=== PATIENT | female | born 1995 | race Caucasian/White ===

== ENCOUNTER 2017-09-29 05:25 | Inpatient (IN) | payer OTHER ==
[2017-09-29] MEDS ORDERED: Nalbuphine 10 MG/1 ML Vial IVPUSH PRN (06:03)
[2017-09-29] MEDS ORDERED: Tranexamic Acid 1,000 MG in Sodium Chloride 0.9% 100 ML IV PRN (06:03)
[2017-09-29] MEDS ORDERED: Misoprostol 200 MCG Tab PO PRN (06:03)
[2017-09-29] MEDS ORDERED: Carboprost Tromethamine 250 MCG/1 ML Amp IM PRN (06:03)
[2017-09-29] MEDS ORDERED: Sodium Chloride 0.9% 10 ML Syringe FLUSH PRN (06:03)
[2017-09-29] MEDS ORDERED: Sodium Chloride 0.9% 2.5 ML Syringe FLUSH PRN (06:03)
[2017-09-29] MEDS ORDERED: Water For Irrigation,Sterile 1,000 ML Container IRR PRN (06:03)
[2017-09-29] MEDS ORDERED: Methylergonovine 0.2 MG/1 ML Amp IM PRN (06:03)
[2017-09-29] MEDS ORDERED: Lidocaine 1% 50 ML MDV INJECT PRN (06:03)
[2017-09-29] MEDS ORDERED: Lactated Ringers 1,000 ML IV SCH (06:15)
[2017-09-29] MEDS ORDERED: Oxytocin/0.9 % Sodium Chloride 30 UNIT/500 ML BAG IV SCH (06:15)
--- NOTE | 2017-09-29 06:28 | PCM.LDHP ---
L&D History of Present Illness - General Date of Service: 09/29/17 Admit Problem/Dx: Patient Status Order with Admit Dx/Problem 09/29/17 05:37 Patient Status [ADT] Routine 09/29/17 06:03 Patient Status [ADT] Routine Admission Diagnosis/Problem Admission Diagnosis/Problem 09/29/17 06:23 22yo EDC 10/07/2017 38 6/7wks O+, RI, GBS neg. Come in transition labor 8cm. Source of Information: Patient History Limitations: Reports: No Limitations - History of Present Illness Timing/Duration: Reports: minutes: Location, : Reports: Abdomen Quality: Reports: Pressure, Sharp Severity: Severe Improves with: Reports: None Worsens with: Reports: None Associated Symptoms: Reports: N - Related Data Allergies/Adverse Reactions: Allergies Allergy/AdvReac Type Severity Reaction Status Date / Time No Known Allergies Allergy Verified 05/12/16 22:45 Past Medical History Cardiovascular History: Reports: None Respiratory History: Reports: None [employer] History: Reports: Hematologic History: Reports: None (Denies any personal or family history of bleeding or clotting problems) - Past Surgical History HEENT Surgical History: Reports: Other (See Below) Social & Family History - Family History Family Medical History: Noncontributory - Tobacco Use Smoking Status *Q: Never Smoker Second Hand Smoke Exposure: No - Caffeine Use Caffeine Use: Reports: Coffee - Recreational Drug Use Recreational Drug Use: No H&P Review of Systems - Review of Systems: Review Of Systems: See Below General: Reports: No Symptoms HEENT: Reports: No Symptoms Pulmonary: Reports: No Symptoms Cardiovascular: Reports: No Symptoms Gastrointestinal: Reports: No Symptoms Genitourinary: Reports: No Symptoms Musculoskeletal: Reports: No Symptoms Skin: Reports: No Symptoms Psychiatric: Reports: No Symptoms Neurological: Reports: No Symptoms Hematologic/Lymphatic: Reports: No Symptoms Immunologic: Reports: No Symptoms L&D Exam - Exam Exam: See Below - Vital Signs Weight: 69.4 kg - OB Specific Contraction Intensity: Strong Movement: Active Heart Tones: Present Heart Tones per Min: 155 Heart Rate (FHR) Variability: Moderate (6-25 bmp) Presentation: Vertex Estimated Weight: 3200 - Razo Score Razo Score Cervix Position: Anterior Razo Score Consistency: Soft Razo Score Effacement: >80% Razo Score Dilation: > 5 cm Razo Score 's Station: -2 Razo Score Total: 11 - Exam General: Alert, Oriented HEENT: Hearing Intact Lungs: Normal Respiratory Effort GI/Abdominal Exam: Soft Rectal Exam: Deferred Genitourinary: Normal external exam, Normal bimanual exam, Cervical dilitation Back Exam: Full Range of Motion Extremities: Normal Range of Motion, Non-Tender, No Pedal Edema, Normal Capillary Refill Skin: Warm, Dry, Intact Neurological: Reflexes Equal Bilateral, Normal Speech, Normal Tone Psychiatric: Alert, Normal Affect, Normal Mood - Problem List (1) Supervision of normal IUP (intrauterine ) in multigravida SNOMED Code(s): 841458270, 542597261 ICD Code: Z34.80 - ENCOUNTER FOR SUPRVSN OF NORMAL , UNSP TRIMESTER Status: Acute Priority: High Current Visit: Yes Qualifiers: Trimester: third trimester Qualified Code(s): Z34.83 - Encounter for supervision of other normal , third trimester Problem List Initiated/Reviewed/Updated: Yes Orders Last 24hrs: Active Orders 24 hr Category Date Time Status Patient Status [ADT] Routine ADT 09/29/17 06:03 Active Heart Tones [RC] CONTINUOUS Care 09/29/17 06:03 Active Non Stress Test [RC] PER UNIT ROUTINE Care 09/29/17 05:37 Active Non Stress Test [RC] PER UNIT ROUTINE Care 09/29/17 06:03 Active May Shower [RC] ASDIRECTED Care 09/29/17 06:03 Active Notify Provider [RC] PRN Care 09/29/17 06:03 Active Peripheral IV Care [RC] . DIRECTED Care 09/29/17 06:03 Active Up ad Nory [RC] ASDIRECTED Care 09/29/17 05:37 Active Up ad Nory [RC] ASDIRECTED Care 09/29/17 06:03 Active Vaginal Exam [RC] Click to Edit Care 09/29/17 05:37 Active Vaginal Exam [RC] PRN Care 09/29/17 06:03 Active Vital Signs [RC] PER UNIT ROUTINE Care 09/29/17 05:37 Active Vital Signs [RC] PER UNIT ROUTINE Care 09/29/17 06:03 Active AMNISURE RUPTURE MEMBRAN [BF] Routine Lab 09/29/17 05:40 Ordered CBC W/O DIFF,HEMOGRAM [HEME] Routine Lab 09/29/17 06:03 Ordered TYPE AND SCREEN [BBK] Routine Lab 09/29/17 06:03 Ordered Carboprost Tromethamine [Hemabate DS] Med 09/29/17 06:03 Active 250 mcg IM ASDIRECTED PRN Lactated Ringers [Ringers, Lactated] 1,000 ml Med 09/29/17 06:15 Active IV ASDIRECTED Lidocaine 1% [Xylocaine 1%] Med 09/29/17 06:03 Active 50 ml INJECT .ONCE PRN Methylergonovine [Methergine] Med 09/29/17 06:03 Active 0.2 mg IM ASDIRECTED PRN Misoprostol [Cytotec] Med 09/29/17 06:03 Active 200 mcg PO .ONCE PRN Nalbuphine [Nubain] Med 09/29/17 06:03 Active 10 mg IVPUSH Q1H PRN Oxytocin/0.9 % Sodium Chloride [Oxytocin 30 Unit/500 ML Med 09/29/17 06:15 Active -NS] 30 unit in 500 ml IV TITRATE Sodium Chloride 0.9% [Saline Flush] Med 09/29/17 06:03 Active 10 ml FLUSH ASDIRECTED PRN Sodium Chloride 0.9% [Saline Flush] Med 09/29/17 06:03 Active 2.5 ml FLUSH ASDIRECTED PRN Tranexamic Acid [Cyklokapron] 1,000 mg Med 09/29/17 06:03 Active Sodium Chloride 0.9% [Normal Saline] 100 ml IV ONETIME Water For Irrigation,Sterile [Sterile Water for Med 09/29/17 06:03 Active Irrigation] 1,000 ml IRR ASDIRECTED PRN Scalp Electrode [WOMSER] Per Unit Routine Oth 09/29/17 06:03 Ordered Peripheral IV Insertion Adult [OM.PC] Routine Oth 09/29/17 06:03 Ordered Resuscitation Status Routine Resus Stat 09/29/17 05:37 Ordered Medication Orders Carboprost Tromethamine (Hemabate Ds) 250 mcg IM ASDIRECTED PRN PRN Reason: Post Hemorrhage Tranexamic Acid 1,000 mg/ (Sodium Chloride) 110 mls @ 660 mls/hr IV ONETIME PRN PRN Reason: Bleeding Lactated Ringer's (Ringers, Lactated) 1,000 mls @ 150 mls/hr IV ASDIRECTED [facility] Oxytocin/Sodium Chloride (Oxytocin 30 Unit/500 Ml-Ns) 30 unit in 500 mls @ 250 mls/hr IV TITRATE JESUS ALBERTO Lidocaine HCl (Xylocaine 1%) 50 ml INJECT .ONCE PRN PRN Reason: Laceration repair Methylergonovine Maleate (Methergine) 0.2 mg IM ASDIRECTED PRN PRN Reason: Post Hemorrhage Misoprostol (Cytotec) 200 mcg PO .ONCE PRN PRN Reason: Post Hemorrhage Nalbuphine HCl (Nubain) 10 mg IVPUSH Q1H PRN PRN Reason: Pain (severe 7-10) Sodium Chloride (Saline Flush) 10 ml FLUSH ASDIRECTED PRN PRN Reason: Keep Vein Open Sodium Chloride (Saline Flush) 2.5 ml FLUSH ASDIRECTED PRN PRN Reason: Keep Vein Open Sterile Water (Sterile Water For Irrigation) 1,000 ml IRR ASDIRECTED PRN PRN Reason: delivery Assessment/Plan Comment:: Labor A: 22yo EDC 10/07/2017 38 6/7wks O+, RI, GBS neg. Come in transition labor 8cm. P: Admit, epidural prn, anticipate . Dr Manriquez updated
[2017-09-29] MEDS ORDERED: Benzocaine/Menthol 20%-0.5% Spray 78 GM Cannister TOP PRN (10:00)
[2017-09-29] MEDS ORDERED: Acetaminophen 500 MG Tab PO PRN ×2 (10:00)
[2017-09-29] MEDS ORDERED: Lanolin 100% Cream 7 GM Tube TOP PRN (10:00)
[2017-09-29] MEDS ORDERED: Docusate Sodium 100 MG Cap PO PRN (10:00)
[2017-09-29] MEDS ORDERED: oxyCODONE 5 MG Tab PO PRN (10:00)
[2017-09-29] MEDS ORDERED: Witch Hazel Medicated Pads 40/Jar TOP PRN (10:00)
[2017-09-29] MEDS ORDERED: Bisacodyl 10 MG Supp RECTAL PRN (10:00)
[2017-09-29] MEDS ORDERED: Ibuprofen 400 MG Tab PO PRN (10:00)
--- NOTE | 2017-09-29 10:13 | PCM.DEL ---
L & D Note - General Info Date of Service: 09/29/17 Mother's Due Date: 10/07/17 - Delivery Note Labor: Spontaneous Delivery Outcome: Livebirth Infant Delivery Method: Spontaneous Vaginal Delivery-Single Presentation: Vertex Nuchal Cord: Present Anesthesia Type: None Episiotomy Type: None Laceration: None Placenta: Intact, Spontaneous Cord: 3 Vessels Estimated Blood Loss: 100 Resuscitation Needed: No Score 1 min: 4 Score 5 min: 8 Second Stage Interventions: Reports: Pushing, Pulls Own Legs Back Delivery Comments (Free Text/Narrative):: of viable male over intact perineum. Head delivered with good pushing, nuchle x1 reduced over head, shoulders and body followed easily. Infant on mothers abdomen has no spont cry and a bit floppy. CC x2 and cut, infant to warmer and code called. Infant responded to stimulation and bulb suction. Cord blood collected. Placenta delivered grossly intact. Bimanual normal. Inspection noted intact perineum. EBL 100cc, APGARS 4/8, Wt pending bonding. Mother and left in stable condition bonding well. - General Info Date of Service: 09/29/17 Admission Dx/Problem (Free Text): Patient Status Order with Admit Dx/Problem 09/29/17 05:37 Patient Status [ADT] Routine 09/29/17 06:03 Patient Status [ADT] Routine Admission Diagnosis/Problem Admission Diagnosis/Problem 09/29/17 06:23 22yo EDC 10/07/2017 38 6/7wks O+, RI, GBS neg. Come in transition labor 8cm. Functional Status: Reports: Pain Controlled, Tolerating Diet - Review of Systems General: Reports: No Symptoms HEENT: Reports: No Symptoms Pulmonary: Reports: No Symptoms Cardiovascular: Reports: No Symptoms Gastrointestinal: Reports: No Symptoms Genitourinary: Reports: No Symptoms Musculoskeletal: Reports: No Symptoms Skin: Reports: No Symptoms Neurological: Reports: No Symptoms Psychiatric: Reports: No Symptoms - Patient Data Weight - Most Recent: 69.4 kg Lab Results Last 24 Hours: Laboratory Results - last 24 hr 09/29/17 09/29/17 Range/Units 06:22 06:22 WBC 11.02 H (4.0-11.0) K/uL RBC 5.08 (4.30-5.90) M/uL Hgb 15.2 (12.0-16.0) g/dL Hct 43.6 (36.0-46.0) % MCV 85.8 (80.0-98.0) fL MCH 29.9 (27.0-32.0) pg MCHC 34.9 (31.0-37.0) g/dL RDW Std Deviation 45.7 (28.0-62.0) fl RDW Coeff of Rosa 15 (11.0-15.0) % Plt Count 178 (150-400) K/uL MPV 10.70 (7.40-12.00) fL Nucleated RBC % 0.0 /100WBC Nucleated RBCs # 0 K/uL Blood Type O POSITIVE Antibody Screen NEGATIVE Med Orders - Current: Current Medications Acetaminophen (Tylenol Extra Strength) 500 mg PO Q4H PRN PRN Reason: Pain Acetaminophen (Tylenol Extra Strength) 1,000 mg PO Q4H PRN PRN Reason: Pain Benzocaine/Menthol (Dermoplast Pain Relief 20%-0.5% [place]) 78 gm TOP ASDIRECTED PRN PRN Reason: Perineal Comfort Measure Bisacodyl (Dulcolax) 10 mg RECTAL .ONCE PRN PRN Reason: Constipation Docusate Sodium (Colace) 100 mg PO BID PRN PRN Reason: Constipation Emollient Ointment (Lansinoh Hpa) 0 gm TOP ASDIRECTED PRN PRN Reason: Sore Nipples Ibuprofen (Motrin) 400 mg PO Q4H PRN PRN Reason: Pain Ibuprofen (Motrin) 800 mg PO Q6H PRN PRN Reason: Pain Oxycodone HCl (Oxycodone) 5 mg PO Q2H PRN PRN Reason: Pain Witch Soraida (Tucks) 1 pad TOP ASDIRECTED PRN PRN Reason: comfort care Discontinued Medications Carboprost Tromethamine (Hemabate Ds) 250 mcg IM ASDIRECTED PRN PRN Reason: Post Hemorrhage Tranexamic Acid 1,000 mg/ (Sodium Chloride) 110 mls @ 660 mls/hr IV ONETIME PRN PRN Reason: Bleeding Lactated Ringer's (Ringers, Lactated) 1,000 mls @ 150 mls/hr IV ASDIRECTED JESUS ALBERTO Oxytocin/Sodium Chloride (Oxytocin 30 Unit/500 Ml-Ns) 30 unit in 500 mls @ 250 mls/hr IV TITRATE JESUS ALBERTO Lidocaine HCl (Xylocaine 1%) 50 ml INJECT .ONCE PRN PRN Reason: Laceration repair Methylergonovine Maleate (Methergine) 0.2 mg IM ASDIRECTED PRN PRN Reason: Post Hemorrhage Misoprostol (Cytotec) 200 mcg PO .ONCE PRN PRN Reason: Post Hemorrhage Nalbuphine HCl (Nubain) 10 mg IVPUSH Q1H PRN PRN Reason: Pain (severe 7-10) Sodium Chloride (Saline Flush) 10 ml FLUSH ASDIRECTED PRN PRN Reason: Keep Vein Open Sodium Chloride (Saline Flush) 2.5 ml FLUSH ASDIRECTED PRN PRN Reason: Keep Vein Open Sterile Water (Sterile Water For Irrigation) 1,000 ml IRR ASDIRECTED PRN PRN Reason: delivery - Exam General: Alert, Oriented, Cooperative, No Acute Distress Lungs: Normal Respiratory Effort GI/Abdominal Exam: Soft (Female) Exam: Vaginal Bleeding Back Exam: Full Range of Motion Extremities: Normal Range of Motion, Non-Tender, No Pedal Edema, Normal Capillary Refill Skin: Warm, Dry, Intact Neurological: No New Focal Deficit, Normal Speech, Normal Tone Psy/Mental Status: Alert, Normal Affect, Normal Mood - Problem List & Annotations (1) Supervision of normal IUP (intrauterine ) in multigravida SNOMED Code(s): 759687881, 466527961 Code(s): Z34.80 - ENCOUNTER FOR SUPRVSN OF NORMAL , UNSP TRIMESTER Status: Acute Priority: High Current Visit: Yes Qualifiers: Trimester: third trimester Qualified Code(s): Z34.83 - Encounter for supervision of other normal , third trimester (2) (normal spontaneous vaginal delivery) SNOMED Code(s): 92035737 Code(s): O80 - ENCOUNTER FOR FULL-TERM UNCOMPLICATED DELIVERY Status: Acute Priority: High Current Visit: Yes - Problem List Review Problem List Initiated/Reviewed/Updated: Yes - My Orders Last 24 Hours: My Active Orders 09/29/17 05:37 Non Stress Test [RC] PER UNIT ROUTINE Up ad Nory [RC] ASDIRECTED Vaginal Exam [RC] Click to Edit Vital Signs [RC] PER UNIT ROUTINE 09/29/17 06:03 Heart Tones [RC] CONTINUOUS May Shower [RC] ASDIRECTED Notify Provider [RC] PRN Vaginal Exam [RC] PRN Vital Signs [RC] PER UNIT ROUTINE 09/29/17 10:00 Acetaminophen [Tylenol Extra Strength] 1,000 mg PO Q4H PRN Acetaminophen [Tylenol Extra Strength] 500 mg PO Q4H PRN Benzocaine/Menthol [Dermoplast Pain Relief 20%-0.5% [place]] 78 gm TOP ASDIRECTED PRN Bisacodyl [Dulcolax] 10 mg RECTAL .ONCE PRN Docusate Sodium [Colace] 100 mg PO BID PRN Ibuprofen [Motrin] 400 mg PO Q4H PRN Ibuprofen [Motrin] 800 mg PO Q6H PRN Lanolin [Lansinoh HPA] See Dose Instructions TOP ASDIRECTED PRN Witch Soraida [Tucks] 1 pad TOP ASDIRECTED PRN oxyCODONE 5 mg PO Q2H PRN Resuscitation Status Routine 09/29/17 10:01 May Shower [RC] ASDIRECTED Up ad Nory [RC] ASDIRECTED Vital Signs [RC] PER UNIT ROUTINE Assess Lochia [WOMSER] Per Unit Routine Assess Uterine Involution [WOMSER] Per Unit Routine Peripheral IV Discontinue [OM.PC] Routine 09/29/17 10:02 Patient Status [ADT] Routine 09/29/17 Lunch Regular Diet [DIET] - Plan Plan:: Labor A: 22yo EDC 10/07/2017 38 6/7wks O+, RI, GBS neg. Come in transition labor 8cm. P: Admit, epidural prn, anticipate . Dr Manriquez updated Delivery A: of viable male. APGARS 4/8, Wt pending. EBL 100cc, Intact perineum. Stable P: Routine pp plan of care
[2017-09-29] MEDS: Ibuprofen 800 MG Tab PO PRN (10:36)
[2017-09-30] MEDS: Ibuprofen 800 MG Tab PO PRN ×2 (02:05→13:16)
--- NOTE | 2017-09-30 08:00 | PCM.DCSUM1 ---
Discharge Summary - Hospital Course Free Text/Narrative:: Discharge home with , follow up in 6 weeks for post visit or sooner if needed. - Discharge Data Discharge Date: 09/30/17 Discharge Disposition: Home, Self-Care 01 Condition: Good - Discharge Diagnosis/Problem(s) (1) Supervision of normal IUP (intrauterine ) in multigravida SNOMED Code(s): 498575355, 699768829 ICD Code: Z34.80 - ENCOUNTER FOR SUPRVSN OF NORMAL , UNSP TRIMESTER Status: Acute Priority: High Current Visit: Yes Qualifiers: Trimester: third trimester Qualified Code(s): Z34.83 - Encounter for supervision of other normal , third trimester (2) (normal spontaneous vaginal delivery) SNOMED Code(s): 70125085 ICD Code: O80 - ENCOUNTER FOR FULL-TERM UNCOMPLICATED DELIVERY Status: Acute Priority: High Current Visit: Yes - Patient Instructions Diet: Usual Diet as Tolerated Activity: As Tolerated, No Strenuous Activities, Rest and Relax Today Driving: May Drive Today Showering/Bathing: May Shower Notify Provider of: Fever, Increased Pain, Swelling and Redness, Nausea and/or Vomiting - Discharge Plan Referrals: [facility] [Outside] Zeina Zurita CNM [Mid-] - 11/10/17 1:30 pm - General Info Date of Service: 09/30/17 Admission Dx/Problem (Free Text: Patient Status Order with Admit Dx/Problem 09/29/17 05:37 Patient Status [ADT] Routine 09/29/17 06:03 Patient Status [ADT] Routine Admission Diagnosis/Problem Admission Diagnosis/Problem 09/29/17 06:23 22yo EDC 10/07/2017 38 6/7wks O+, RI, GBS neg. Come in transition labor 8cm. Functional Status: Reports: Pain Controlled, Tolerating Diet, Ambulating, Urinating - Review of Systems General: Reports: No Symptoms HEENT: Reports: No Symptoms Pulmonary: Reports: No Symptoms Cardiovascular: Reports: No Symptoms Gastrointestinal: Reports: No Symptoms Genitourinary: Reports: No Symptoms Musculoskeletal: Reports: No Symptoms Skin: Reports: No Symptoms Neurological: Reports: No Symptoms Psychiatric: Reports: No Symptoms - Patient Data Vitals - Most Recent: Last Vital Signs Temp 36.3 C 09/30/17 04:29 Pulse 67 09/30/17 04:29 Resp 16 09/30/17 04:29 BP 103/59 L 09/30/17 04:29 Pulse Ox 96 09/30/17 04:29 Weight - Most Recent: 69.4 kg Med Orders - Current: Current Medications Acetaminophen (Tylenol Extra Strength) 500 mg PO Q4H PRN PRN Reason: Pain Acetaminophen (Tylenol Extra Strength) 1,000 mg PO Q4H PRN PRN Reason: Pain Benzocaine/Menthol (Dermoplast Pain Relief 20%-0.5% [place]) 78 gm TOP ASDIRECTED PRN PRN Reason: Perineal Comfort Measure Last Admin: 09/29/17 10:35 Dose: 1 canister Bisacodyl (Dulcolax) 10 mg RECTAL .ONCE PRN PRN Reason: Constipation Docusate Sodium (Colace) 100 mg PO BID PRN PRN Reason: Constipation Emollient Ointment (Lansinoh Hpa) 0 gm TOP ASDIRECTED PRN PRN Reason: Sore Nipples Ibuprofen (Motrin) 400 mg PO Q4H PRN PRN Reason: Pain Ibuprofen (Motrin) 800 mg PO Q6H PRN PRN Reason: Pain Last Admin: 09/30/17 02:05 Dose: 800 mg Oxycodone HCl (Oxycodone) 5 mg PO Q2H PRN PRN Reason: Pain Witch Soraida (Tucks) 1 pad TOP ASDIRECTED PRN PRN Reason: comfort care Last Admin: 09/29/17 10:35 Dose: 1 tub Discontinued Medications Carboprost Tromethamine (Hemabate Ds) 250 mcg IM ASDIRECTED PRN PRN Reason: Post Hemorrhage Tranexamic Acid 1,000 mg/ (Sodium Chloride) 110 mls @ 660 mls/hr IV ONETIME PRN PRN Reason: Bleeding Lactated Ringer's (Ringers, Lactated) 1,000 mls @ 150 mls/hr IV ASDIRECTED JESUS ALBERTO Oxytocin/Sodium Chloride (Oxytocin 30 Unit/500 Ml-Ns) 30 unit in 500 mls @ 250 mls/hr IV TITRATE JESUS ALBERTO Last Admin: 09/29/17 09:49 Dose: 250 mls/hr Lidocaine HCl (Xylocaine 1%) 50 ml INJECT .ONCE PRN PRN Reason: Laceration repair Methylergonovine Maleate (Methergine) 0.2 mg IM ASDIRECTED PRN PRN Reason: Post Hemorrhage Misoprostol (Cytotec) 200 mcg PO .ONCE PRN PRN Reason: Post Hemorrhage Nalbuphine HCl (Nubain) 10 mg IVPUSH Q1H PRN PRN Reason: Pain (severe 7-10) Sodium Chloride (Saline Flush) 10 ml FLUSH ASDIRECTED PRN PRN Reason: Keep Vein Open Sodium Chloride (Saline Flush) 2.5 ml FLUSH ASDIRECTED PRN PRN Reason: Keep Vein Open Sterile Water (Sterile Water For Irrigation) 1,000 ml IRR ASDIRECTED PRN PRN Reason: delivery Last Admin: 09/29/17 09:30 Dose: 1,000 ml - Exam General: Reports: Alert, Oriented, Cooperative, No Acute Distress Lungs: Reports: Clear to Auscultation, Normal Respiratory Effort Cardiovascular: Reports: Regular Rate, Regular Rhythm, No Murmurs GI/Abdominal Exam: Soft, Non-Tender, No Distention (Female) Exam: Vaginal Bleeding Rectal (Female) Exam: Deferred Back Exam: Reports: Full Range of Motion Extremities: Normal Range of Motion, Non-Tender, No Pedal Edema, Normal Capillary Refill Skin: Reports: Warm, Dry, Intact Wound/Incisions: Reports: Healing Well Neurological: Reports: No New Focal Deficit, Normal Speech, Normal Tone Psy/Mental Status: Reports: Alert, Normal Affect, Normal Mood *Q Meaningful Use (DIS) - VTE *Q VTE Criteria *Q: - Stroke *Q Stroke Criteria *Q: - AMI *Q AMI Criteria *Q:
[2017-09-30 10:52] VITALS: BP 100/64
== END 2017-09-30 14:15 | disposition home or self-care (01) | DRG 775 ==
LOC: MW.OBCHECK 05:25 → MW.OB 05:28 → MW.OBCHECK 06:03 → OBSVTOIN 09:45
PROVIDERS: ADMIT Obstetrics & Gynecology; ATTEND Obstetrics & Gynecology
PROC: 10E0XZZ Delivery of Products of Conception, External Approach (ICD-10-PCS; principal; 2017-09-29)
DX: O69.1XX0 Labor and delivery complicated by cord around neck, with compression, not applicable or unspecified (principal); Z3A.38 38 weeks gestation of pregnancy; Z37.0 Single live birth
CPT/HCPCS: 59025; 59409; 85027; 86850; 86900; 86901; A9270-GY; J2590

== ENCOUNTER 2019-03-27 02:20 | Inpatient (IN) | payer OTHER ==
[2019-03-27] MEDS ORDERED: Sodium Chloride 0.9% 10 ML SDV IV PRN (02:57)
[2019-03-27] MEDS ORDERED: Ondansetron 4 MG/2 ML SDV IVPUSH PRN (02:57)
[2019-03-27] MEDS ORDERED: Water For Irrigation,Sterile 1,000 ML Container IRR PRN (02:57)
[2019-03-27] MEDS ORDERED: Misoprostol 200 MCG Tab PO PRN (02:57)
[2019-03-27] MEDS ORDERED: Carboprost Tromethamine 250 MCG/1 ML Amp IM PRN (02:57)
[2019-03-27] MEDS ORDERED: Methylergonovine 0.2 MG/1 ML Amp IM PRN (02:57)
[2019-03-27] MEDS ORDERED: Sodium Chloride 0.9% 2.5 ML Syringe FLUSH PRN (02:57)
[2019-03-27] MEDS ORDERED: Tranexamic Acid 1,000 MG in Sodium Chloride 0.9% 100 ML IV PRN (02:57)
[2019-03-27] MEDS ORDERED: Nalbuphine 10 MG/1 ML Vial IVPUSH PRN (02:57)
[2019-03-27] MEDS ORDERED: Sodium Chloride 0.9% 10 ML Syringe FLUSH PRN (02:57)
[2019-03-27] MEDS ORDERED: Ampicillin 2 GM in Sodium Chloride 0.9% 100 ML IV ONE (02:57)
[2019-03-27] MEDS ORDERED: Lidocaine 1% 50 ML MDV INJECT PRN (02:57)
[2019-03-27] MEDS ORDERED: Butorphanol 1 MG/ML SDV IVPUSH PRN (02:57)
[2019-03-27] MEDS ORDERED: Oxytocin/0.9 % Sodium Chloride 30 UNIT/500 ML BAG IV SCH (03:00)
[2019-03-27] MEDS ORDERED: Lactated Ringers 1,000 ML IV SCH (03:00)
[2019-03-27] MEDS ORDERED: Oxytocin 10 Units/1 ML SDV ONE (03:07)
--- NOTE | 2019-03-27 03:43 | PCM.LDHP ---
L&D History of Present Illness - General Date of Service: 03/27/19 Admit Problem/Dx: Patient Status Order with Admit Dx/Problem 03/27/19 02:57 Patient Status [ADT] Routine Admission Diagnosis/Problem Admission Diagnosis/Problem 03/27/19 03:35 23 yo EDC 03/26/2019 40 1/7wks comes to L&D in active labor, O+, RI, GBS pos. 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: Hematologic History: Reports: None (Denies any personal or family history of bleeding or clotting problems) - Past Surgical History HEENT Surgical History: Reports: Other (See Below) Social & Family History - Family History Family Medical History: Noncontributory - Caffeine Use Caffeine Use: Reports: Coffee H&P Review of Systems - Review of Systems: Review Of Systems: See Below General: Reports: No Symptoms HEENT: Reports: No Symptoms Pulmonary: Reports: No Symptoms Cardiovascular: Reports: No Symptoms Gastrointestinal: Reports: No Symptoms Genitourinary: Reports: No Symptoms Musculoskeletal: Reports: No Symptoms Skin: Reports: No Symptoms Psychiatric: Reports: No Symptoms Neurological: Reports: No Symptoms Hematologic/Lymphatic: Reports: No Symptoms Immunologic: Reports: No Symptoms L&D Exam - Exam Exam: See Below - OB Specific Contraction Intensity: Strong Movement: Active Heart Tones: Present Heart Rate (FHR) Variability: Moderate (6-25 bmp) Presentation: Vertex - Razo Score Razo Score Cervix Position: Anterior Razo Score Consistency: Soft Razo Score Effacement: >80% Razo Score Dilation: > 5 cm Razo Score 's Station: -1 ,0 Razo Score Total: 12 - Exam General: Alert, Oriented, Cooperative HEENT: Hearing Intact Lungs: Normal Respiratory Effort GI/Abdominal Exam: Soft, Non-Tender Rectal Exam: Deferred Genitourinary: Normal external exam, Normal bimanual exam, Cervical dilitation. No: Cervical fluid, Vaginal bleeding Back Exam: Normal Inspection, Full Range of Motion Extremities: Normal Inspection, Normal Range of Motion, Non-Tender, No Pedal Edema Skin: Warm, Dry, Intact Neurological: Cranial Nerves Intact, Reflexes Equal Bilateral, Strength Equal Bilateral, Normal Gait, Normal Speech, Normal Tone, Sensation Intact Psychiatric: Alert, Normal Affect, Normal Mood - Problem List (1) (normal spontaneous vaginal delivery) SNOMED Code(s): 40315177, 448904647 ICD Code: O80 - ENCOUNTER FOR FULL-TERM UNCOMPLICATED DELIVERY Status: Acute Priority: High Current Visit: No (2) Supervision of normal IUP (intrauterine ) in multigravida SNOMED Code(s): 734582425, 537950772, 280748954 ICD Code: Z34.80 - ENCOUNTER FOR SUPRVSN OF NORMAL , UNSP TRIMESTER Status: Acute Priority: High Current Visit: No Qualifiers: Trimester: third trimester Problem List Initiated/Reviewed/Updated: Yes Orders Last 24hrs: Active Orders 24 hr Category Date Time Status Patient Status [ADT] Routine ADT 03/27/19 02:57 Active Heart Tones [RC] CONTINUOUS Care 03/27/19 02:57 Active Non Stress Test [RC] PER UNIT ROUTINE Care 03/27/19 02:57 Active May Shower [RC] ASDIRECTED Care 03/27/19 02:57 Active Notify Provider [RC] PRN Care 03/27/19 02:57 Active Up ad Nory [RC] ASDIRECTED Care 03/27/19 02:57 Active Vaginal Exam [RC] PRN Care 03/27/19 02:57 Active Vital Signs [RC] PER UNIT ROUTINE Care 03/27/19 02:57 Active Regular Diet [DIET] Diet 03/27/19 Breakfast Active CBC W/O DIFF,HEMOGRAM [HEME] Routine Lab 03/27/19 02:57 Ordered TYPE AND SCREEN [BBK] Routine Lab 03/27/19 02:57 Ordered Butorphanol [Stadol] Med 03/27/19 02:57 Active 1 mg IVPUSH Q1H PRN Carboprost Tromethamine [Hemabate DS] Med 03/27/19 02:57 Active 250 mcg IM ASDIRECTED PRN Lactated Ringers [Ringers, Lactated] 1,000 ml Med 03/27/19 03:00 Active IV ASDIRECTED Lidocaine 1% [Xylocaine 1%] Med 03/27/19 02:57 Active 50 ml INJECT ONETIME PRN Methylergonovine [Methergine] Med 03/27/19 02:57 Active 0.2 mg IM ASDIRECTED PRN Nalbuphine [Nubain] Med 03/27/19 02:57 Active 10 mg IVPUSH Q1H PRN Ondansetron [Zofran] Med 03/27/19 02:57 Active 4 mg IVPUSH Q4H PRN Oxytocin/0.9 % Sodium Chloride [Oxytocin 30 Unit/500 ML Med 03/27/19 03:00 Active -NS] 30 unit in 500 ml IV TITRATE Sodium Chloride 0.9% [Normal Saline] Med 03/27/19 02:57 Active 10 ml IV ASDIRECTED PRN Sodium Chloride 0.9% [Saline Flush] Med 03/27/19 02:57 Active 10 ml FLUSH ASDIRECTED PRN Sodium Chloride 0.9% [Saline Flush] Med 03/27/19 02:57 Active 2.5 ml FLUSH ASDIRECTED PRN Tranexamic Acid [Cyklokapron] 1,000 mg Med 03/27/19 02:57 Active Sodium Chloride 0.9% [Normal Saline] 100 ml IV ONETIME Water For Irrigation,Sterile [Sterile Water for Med 03/27/19 02:57 Active Irrigation] 1,000 ml IRR ASDIRECTED PRN miSOPROStol [Cytotec] Med 03/27/19 02:57 Active 200 mcg PO ONETIME PRN Scalp Electrode [WOMSER] Per Unit Routine Oth 03/27/19 02:57 Ordered Peripheral IV Insertion Adult [OM.PC] Routine Oth 03/27/19 02:57 Ordered Resuscitation Status Routine Resus Stat 03/27/19 02:57 Ordered Medication Orders Butorphanol Tartrate (Stadol) 1 mg IVPUSH Q1H PRN PRN Reason: Pain Carboprost Tromethamine (Hemabate Ds) 250 mcg IM ASDIRECTED PRN PRN Reason: Post Hemorrhage Lactated Ringer's (Ringers, Lactated) 1,000 mls @ 150 mls/hr IV ASDIRECTED [facility] Oxytocin/Sodium Chloride (Oxytocin 30 Unit/500 Ml-Ns) 30 unit in 500 mls @ 999 mls/hr IV TITRATE JESUS ALBERTO Tranexamic Acid 1,000 mg/ (Sodium Chloride) 110 mls @ 660 mls/hr IV ONETIME PRN PRN Reason: Bleeding Lidocaine HCl (Xylocaine 1%) 50 ml INJECT ONETIME PRN PRN Reason: Laceration repair Methylergonovine Maleate (Methergine) 0.2 mg IM ASDIRECTED PRN PRN Reason: Post Hemorrhage Misoprostol (Cytotec) 200 mcg PO ONETIME PRN PRN Reason: Post Hemorrhage Nalbuphine HCl (Nubain) 10 mg IVPUSH Q1H PRN PRN Reason: Pain (severe 7-10) Ondansetron HCl (Zofran) 4 mg IVPUSH Q4H PRN PRN Reason: Nausea/Vomiting Sodium Chloride (Saline Flush) 10 ml FLUSH ASDIRECTED PRN PRN Reason: Keep Vein Open Sodium Chloride (Saline Flush) 2.5 ml FLUSH ASDIRECTED PRN PRN Reason: Keep Vein Open Sodium Chloride (Normal Saline) 10 ml IV ASDIRECTED PRN PRN Reason: IV Use Sterile Water (Sterile Water For Irrigation) 1,000 ml IRR ASDIRECTED PRN PRN Reason: delivery Assessment/Plan Comment:: A:23 yo EDC 03/26/2019 40 1/7wks comes to L&D in active labor, O+, RI, GBS pos. P: Admit, delivery. Delivery A: of viable female, delivered very fast and delivery assisted by RN, APGARS 8/9, Intact, EBL 100cc, mother and baby stable P: Routine pp plan of care
--- NOTE | 2019-03-27 03:50 | PCM.DEL ---
L & D Note - General Info Date of Service: 03/27/19 Mother's Due Date: 03/26/19 - Delivery Note Labor: Spontaneous Delivery Outcome: Livebirth Infant Delivery Method: Spontaneous Vaginal Delivery-Single Delivery Mode: Spontaneous Presentation: Vertex Nuchal Cord: None Anesthesia Type: None Episiotomy Type: None Laceration: None Placenta: Intact, Spontaneous Score 1 min: 8 Score 5 min: 9 Second Stage Interventions: Reports: Pushing, Pulls Own Legs Back Delivery Comments (Free Text/Narrative):: of viable female, delivery assisted by RN, pt went from 5cm to complete and delivered in 40min. I arrived and delivered the placenta. Inspection of the perineum noted intact. EBL 100cc. APGARS 8/9. Mother and baby stable in recovery bonding well. - General Info Date of Service: 03/27/19 Admission Dx/Problem (Free Text): Patient Status Order with Admit Dx/Problem 03/27/19 02:57 Patient Status [ADT] Routine Admission Diagnosis/Problem Admission Diagnosis/Problem 03/27/19 03:35 23 yo EDC 03/26/2019 40 1/7wks comes to L&D in active labor, O+, RI, GBS pos. Functional Status: Reports: Pain Controlled, Tolerating Diet, Ambulating, Urinating - Review of Systems General: Reports: No Symptoms HEENT: Reports: No Symptoms Pulmonary: Reports: No Symptoms Cardiovascular: Reports: No Symptoms Gastrointestinal: Reports: No Symptoms Genitourinary: Reports: No Symptoms Musculoskeletal: Reports: No Symptoms Skin: Reports: No Symptoms Neurological: Reports: No Symptoms Psychiatric: Reports: No Symptoms - Patient Data Med Orders - Current: Current Medications Butorphanol Tartrate (Stadol) 1 mg IVPUSH Q1H PRN PRN Reason: Pain Carboprost Tromethamine (Hemabate Ds) 250 mcg IM ASDIRECTED PRN PRN Reason: Post Hemorrhage Lactated Ringer's (Ringers, Lactated) 1,000 mls @ 150 mls/hr IV ASDIRECTED JESUS ALBERTO Oxytocin/Sodium Chloride (Oxytocin 30 Unit/500 Ml-Ns) 30 unit in 500 mls @ 999 mls/hr IV TITRATE JESUS ALBERTO Tranexamic Acid 1,000 mg/ (Sodium Chloride) 110 mls @ 660 mls/hr IV ONETIME PRN PRN Reason: Bleeding Lidocaine HCl (Xylocaine 1%) 50 ml INJECT ONETIME PRN PRN Reason: Laceration repair Methylergonovine Maleate (Methergine) 0.2 mg IM ASDIRECTED PRN PRN Reason: Post Hemorrhage Misoprostol (Cytotec) 200 mcg PO ONETIME PRN PRN Reason: Post Hemorrhage Nalbuphine HCl (Nubain) 10 mg IVPUSH Q1H PRN PRN Reason: Pain (severe 7-10) Ondansetron HCl (Zofran) 4 mg IVPUSH Q4H PRN PRN Reason: Nausea/Vomiting Sodium Chloride (Saline Flush) 10 ml FLUSH ASDIRECTED PRN PRN Reason: Keep Vein Open Sodium Chloride (Saline Flush) 2.5 ml FLUSH ASDIRECTED PRN PRN Reason: Keep Vein Open Sodium Chloride (Normal Saline) 10 ml IV ASDIRECTED PRN PRN Reason: IV Use Sterile Water (Sterile Water For Irrigation) 1,000 ml IRR ASDIRECTED PRN PRN Reason: delivery Discontinued Medications Ampicillin Sodium 2 gm/ Sodium (Chloride) 100 mls @ 200 mls/hr IV ONETIME ONE Stop: 03/27/19 03:26 Oxytocin (Pitocin) Confirm Administered Dose 10 unit .ROUTE .STK-MED ONE Stop: 03/27/19 03:08 - Exam General: Alert, Oriented, Cooperative, No Acute Distress Lungs: Normal Respiratory Effort GI/Abdominal Exam: Soft, Non-Tender, No Distention (Female) Exam: Normal External Exam, Vaginal Bleeding. No: Cervical Lesions , Vaginal Lesions, Vaginal Tears Back Exam: Normal Inspection, Full Range of Motion Extremities: Normal Inspection, Normal Range of Motion, Non-Tender, No Pedal Edema Skin: Warm, Dry, Intact Wound/Incisions: Healing Well Neurological: No New Focal Deficit, Normal Speech, Normal Tone, Strength Equal Bilateral Psy/Mental Status: Alert, Normal Affect, Normal Mood - Problem List & Annotations (1) (normal spontaneous vaginal delivery) SNOMED Code(s): 64401097, 274685880 Code(s): O80 - ENCOUNTER FOR FULL-TERM UNCOMPLICATED DELIVERY Status: Acute Priority: High Current Visit: No (2) Supervision of normal IUP (intrauterine ) in multigravida SNOMED Code(s): 935643363, 979453763, 391342595 Code(s): Z34.80 - ENCOUNTER FOR SUPRVSN OF NORMAL , UNSP TRIMESTER Status: Acute Priority: High Current Visit: No Qualifiers: Trimester: third trimester - Problem List Review Problem List Initiated/Reviewed/Updated: Yes - Plan Plan:: A:23 yo EDC 03/26/2019 40 1/7wks comes to L&D in active labor, O+, RI, GBS pos. P: Admit, delivery. Delivery A: of viable female, delivered very fast and delivery assisted by RN, APGARS 8/9, Intact, EBL 100cc, mother and baby stable P: Routine pp plan of care
[2019-03-27] MEDS ORDERED: Oxytocin 10 Units/1 ML SDV IM ONE (03:51)
[2019-03-27] MEDS ORDERED: Benzocaine/Menthol 20%-0.5% Spray 78 GM Cannister TOP PRN (03:56)
[2019-03-27] MEDS ORDERED: Lanolin 100% Cream 7 GM Tube TOP PRN (03:56)
[2019-03-27] MEDS ORDERED: Docusate Sodium 100 MG Cap PO PRN (03:56)
[2019-03-27] MEDS ORDERED: Witch Hazel Medicated Pads 40/Jar TOP PRN (03:56)
[2019-03-27] MEDS ORDERED: Acetaminophen 500 MG Tab PO PRN ×2 (03:56)
[2019-03-27] MEDS ORDERED: Bisacodyl 10 MG Supp RECTAL PRN (03:56)
[2019-03-27] MEDS ORDERED: oxyCODONE 5 MG Tab PO PRN (03:56)
[2019-03-27] MEDS ORDERED: Ibuprofen 800 MG Tab PO PRN (03:56)
[2019-03-27] MEDS ORDERED: Ibuprofen 400 MG Tab PO PRN (03:56)
--- NOTE | 2019-03-28 08:38 | PCM.PNPP ---
- General Info Date of Service: 03/28/19 Admission Dx/Problem (Free Text): Patient Status Order with Admit Dx/Problem 03/27/19 02:57 Patient Status [ADT] Routine Admission Diagnosis/Problem Admission Diagnosis/Problem 03/27/19 03:35 23 yo EDC 03/26/2019 40 1/7wks comes to L&D in active labor, O+, RI, GBS pos. Functional Status: Reports: Pain Controlled, Tolerating Diet, Ambulating, Urinating - Review of Systems General: Reports: No Symptoms HEENT: Reports: No Symptoms Pulmonary: Reports: No Symptoms Cardiovascular: Reports: No Symptoms Gastrointestinal: Reports: No Symptoms Genitourinary: Reports: No Symptoms Musculoskeletal: Reports: No Symptoms Skin: Reports: No Symptoms Neurological: Reports: No Symptoms Psychiatric: Reports: No Symptoms - Patient Data Vital Signs - Most Recent: Last Vital Signs Temp 36.4 C 03/28/19 03:44 Pulse 94 03/28/19 03:44 Resp 17 03/28/19 03:44 BP 102/62 03/28/19 03:44 Pulse Ox 97 03/28/19 03:44 Weight - Most Recent: 70.307 kg Med Orders - Current: Current Medications Acetaminophen (Tylenol Extra Strength) 500 mg PO Q4H PRN PRN Reason: Pain Acetaminophen (Tylenol Extra Strength) 1,000 mg PO Q4H PRN PRN Reason: Pain Benzocaine/Menthol (Dermoplast Pain Relief 20%-0.5% [place]) 78 gm TOP ASDIRECTED PRN PRN Reason: Perineal Comfort Measure Bisacodyl (Dulcolax) 10 mg RECTAL ONETIME PRN PRN Reason: Constipation Carboprost Tromethamine (Hemabate Ds) 250 mcg IM ASDIRECTED PRN PRN Reason: Post Hemorrhage Docusate Sodium (Colace) 100 mg PO BID PRN PRN Reason: Constipation Emollient Ointment (Lansinoh Hpa) 0 gm TOP ASDIRECTED PRN PRN Reason: Sore Nipples Ibuprofen (Motrin) 400 mg PO Q4H PRN PRN Reason: Pain Ibuprofen (Motrin) 800 mg PO Q6H PRN PRN Reason: Pain Methylergonovine Maleate (Methergine) 0.2 mg IM ASDIRECTED PRN PRN Reason: Post Hemorrhage Misoprostol (Cytotec) 200 mcg PO ONETIME PRN PRN Reason: Post Hemorrhage Oxycodone HCl (Oxycodone) 5 mg PO Q2H PRN PRN Reason: Pain Witch Soraida (Tucks) 1 pad TOP ASDIRECTED PRN PRN Reason: comfort care Discontinued Medications Butorphanol Tartrate (Stadol) 1 mg IVPUSH Q1H PRN PRN Reason: Pain Ampicillin Sodium 2 gm/ Sodium (Chloride) 100 mls @ 200 mls/hr IV ONETIME ONE Stop: 03/27/19 03:26 Lactated Ringer's (Ringers, Lactated) 1,000 mls @ 150 mls/hr IV ASDIRECTED JESUS ALBRETO Oxytocin/Sodium Chloride (Oxytocin 30 Unit/500 Ml-Ns) 30 unit in 500 mls @ 999 mls/hr IV TITRATE JESUS LABERTO Tranexamic Acid 1,000 mg/ (Sodium Chloride) 110 mls @ 660 mls/hr IV ONETIME PRN PRN Reason: Bleeding Lidocaine HCl (Xylocaine 1%) 50 ml INJECT ONETIME PRN PRN Reason: Laceration repair Nalbuphine HCl (Nubain) 10 mg IVPUSH Q1H PRN PRN Reason: Pain (severe 7-10) Ondansetron HCl (Zofran) 4 mg IVPUSH Q4H PRN PRN Reason: Nausea/Vomiting Oxytocin (Pitocin) Confirm Administered Dose 10 unit .ROUTE .STK-MED ONE Stop: 03/27/19 03:08 Oxytocin (Pitocin) 10 unit IM ONETIME ONE Stop: 03/27/19 03:52 Last Admin: 03/27/19 04:12 Dose: 10 unit Sodium Chloride (Saline Flush) 10 ml FLUSH ASDIRECTED PRN PRN Reason: Keep Vein Open Sodium Chloride (Saline Flush) 2.5 ml FLUSH ASDIRECTED PRN PRN Reason: Keep Vein Open Sodium Chloride (Normal Saline) 10 ml IV ASDIRECTED PRN PRN Reason: IV Use Sterile Water (Sterile Water For Irrigation) 1,000 ml IRR ASDIRECTED PRN PRN Reason: delivery - Infant Interaction Disposition, : in Room with Family Interaction: Holding Infant Feeding: Breastfed Infant; Nursed Well Support Person: - Recovery Exam Fundal Tone: Firm Fundal Level: 2 Fingerbreadths Below Umbilicus Fundal Placement: Midline Lochia Amount: Scant Lochia Color: Rubra/Red Perineum Description: Intact, Minimal Bruising/Swelling Episiotomy/Laceration: None Bladder Status: Voiding Urinary Elimination: Voided - Exam General: Alert, Oriented, Cooperative, No Acute Distress Lungs: Normal Respiratory Effort GI/Abdominal Exam: Soft, Non-Tender Extremities: Normal Range of Motion, No Pedal Edema Skin: Warm, Dry, Intact Neurological: No New Focal Deficit, Normal Speech, Normal Tone, Strength Equal Bilateral, Sensation Intact Psy/Mental Status: Alert, Normal Affect, Normal Mood - Problem List & Annotations (1) (normal spontaneous vaginal delivery) SNOMED Code(s): 44430604, 003567703 Code(s): O80 - ENCOUNTER FOR FULL-TERM UNCOMPLICATED DELIVERY Status: Acute Priority: High Current Visit: No (2) Supervision of normal IUP (intrauterine ) in multigravida SNOMED Code(s): 087747190, 868041049, 964924519 Code(s): Z34.80 - ENCOUNTER FOR SUPRVSN OF NORMAL , UNSP TRIMESTER Status: Acute Priority: High Current Visit: No Qualifiers: Trimester: third trimester - Problem List Review Problem List Initiated/Reviewed/Updated: Yes - Plan Plan:: A:23 yo EDC 03/26/2019 40 1/7wks comes to L&D in active labor, O+, RI, GBS pos. P: Admit, delivery. Delivery A: of viable female, delivered very fast and delivery assisted by RN, APGARS 8/9, Intact, EBL 100cc, mother and baby stable P: Routine pp plan of care PPD#1 A: VSS, AF, breast feeding well, infant needs to stay one more day due to untreated GBS, pt will stay as well. Stable P: Continue PP POC
--- NOTE | 2019-03-29 08:55 | PCM.DCSUM1 ---
Discharge Summary - Hospital Course Free Text/Narrative:: Discharge home with infant, follow up in 6 weeks for . Diagnosis: Stroke: No Modified [place] Scale: No Symptoms at All Modified [place] Scale Score: 0 - Discharge Data Discharge Date: 03/29/19 Discharge Disposition: Home, Self-Care 01 Condition: Good - Referral to Home Health Primary Care Physician: PCP None - Discharge Diagnosis/Problem(s) (1) (normal spontaneous vaginal delivery) SNOMED Code(s): 00489941, 082178673 ICD Code: O80 - ENCOUNTER FOR FULL-TERM UNCOMPLICATED DELIVERY Status: Acute Priority: High Current Visit: No (2) Supervision of normal IUP (intrauterine ) in multigravida SNOMED Code(s): 107324476, 151879209, 263056582 ICD Code: Z34.80 - ENCOUNTER FOR SUPRVSN OF NORMAL , UNSP TRIMESTER Status: Acute Priority: High Current Visit: No Qualifiers: Trimester: third trimester - Patient Instructions Diet: Usual Diet as Tolerated Activity: As Tolerated, No Strenuous Activities, Rest and Relax Today Driving: May Drive Today Showering/Bathing: May Shower Notify Provider of: Fever, Increased Pain, Swelling and Redness, Nausea and/or Vomiting Other/Special Instructions: Discharge home with , follow up in 6 weeks for . - Discharge Plan *PRESCRIPTION DRUG MONITORING PROGRAM REVIEWED*: Not Applicable *COPY OF PRESCRIPTION DRUG MONITORING REPORT IN PATIENT FABIAN: Not Applicable Prescriptions/Med Rec: Ibuprofen [Motrin] 800 mg PO Q6H PRN #90 tablet PRN Reason: Pain Home Medications: Home Meds Ibuprofen [Motrin] 800 mg PO Q6H PRN #90 tablet 03/29/19 [Rx] Oxygen Therapy Mode: Room Air Patient Handouts: Vaginal Delivery, Care After Referrals: [facility] [Outside] Zeina Zurita CNM [Mid-] - 05/08/19 3:00 pm - Discharge Summary/Plan Comment DC Time >30 min.: Yes Discharge Summary/Plan Comment: Discharge home with , follow up in 6 weeks for . - General Info Date of Service: 03/29/19 Admission Dx/Problem (Free Text: Patient Status Order with Admit Dx/Problem 03/27/19 02:57 Patient Status [ADT] Routine Admission Diagnosis/Problem Admission Diagnosis/Problem 03/27/19 03:35 23 yo EDC 03/26/2019 40 1/7wks comes to L&D in active labor, O+, RI, GBS pos. Functional Status: Reports: Pain Controlled, Tolerating Diet, Ambulating, Urinating - Review of Systems General: Reports: No Symptoms HEENT: Reports: No Symptoms Pulmonary: Reports: No Symptoms Cardiovascular: Reports: No Symptoms Gastrointestinal: Reports: No Symptoms Genitourinary: Reports: No Symptoms Musculoskeletal: Reports: No Symptoms Skin: Reports: No Symptoms Neurological: Reports: No Symptoms Psychiatric: Reports: No Symptoms - Patient Data Vitals - Most Recent: Last Vital Signs Temp 36.6 C 03/29/19 03:45 Pulse 84 03/29/19 03:45 Resp 16 03/29/19 03:45 BP 92/66 03/29/19 03:45 Pulse Ox 97 03/29/19 03:45 Weight - Most Recent: 70.307 kg Med Orders - Current: Current Medications Acetaminophen (Tylenol Extra Strength) 500 mg PO Q4H PRN PRN Reason: Pain Acetaminophen (Tylenol Extra Strength) 1,000 mg PO Q4H PRN PRN Reason: Pain Benzocaine/Menthol (Dermoplast Pain Relief 20%-0.5% [place]) 78 gm TOP ASDIRECTED PRN PRN Reason: Perineal Comfort Measure Bisacodyl (Dulcolax) 10 mg RECTAL ONETIME PRN PRN Reason: Constipation Carboprost Tromethamine (Hemabate Ds) 250 mcg IM ASDIRECTED PRN PRN Reason: Post Hemorrhage Docusate Sodium (Colace) 100 mg PO BID PRN PRN Reason: Constipation Emollient Ointment (Lansinoh Hpa) 0 gm TOP ASDIRECTED PRN PRN Reason: Sore Nipples Ibuprofen (Motrin) 400 mg PO Q4H PRN PRN Reason: Pain Ibuprofen (Motrin) 800 mg PO Q6H PRN PRN Reason: Pain Methylergonovine Maleate (Methergine) 0.2 mg IM ASDIRECTED PRN PRN Reason: Post Hemorrhage Misoprostol (Cytotec) 200 mcg PO ONETIME PRN PRN Reason: Post Hemorrhage Oxycodone HCl (Oxycodone) 5 mg PO Q2H PRN PRN Reason: Pain Witch Soraida (Tucks) 1 pad TOP ASDIRECTED PRN PRN Reason: comfort care Discontinued Medications Butorphanol Tartrate (Stadol) 1 mg IVPUSH Q1H PRN PRN Reason: Pain Ampicillin Sodium 2 gm/ Sodium (Chloride) 100 mls @ 200 mls/hr IV ONETIME ONE Stop: 03/27/19 03:26 Last Admin: 03/28/19 08:39 Dose: Not Given Lactated Ringer's (Ringers, Lactated) 1,000 mls @ 150 mls/hr IV ASDIRECTED JESUS ALBERTO Oxytocin/Sodium Chloride (Oxytocin 30 Unit/500 Ml-Ns) 30 unit in 500 mls @ 999 mls/hr IV TITRATE JESUS ALBERTO Tranexamic Acid 1,000 mg/ (Sodium Chloride) 110 mls @ 660 mls/hr IV ONETIME PRN PRN Reason: Bleeding Lidocaine HCl (Xylocaine 1%) 50 ml INJECT ONETIME PRN PRN Reason: Laceration repair Nalbuphine HCl (Nubain) 10 mg IVPUSH Q1H PRN PRN Reason: Pain (severe 7-10) Ondansetron HCl (Zofran) 4 mg IVPUSH Q4H PRN PRN Reason: Nausea/Vomiting Oxytocin (Pitocin) Confirm Administered Dose 10 unit .ROUTE .[facility]-MED ONE Stop: 03/27/19 03:08 Last Admin: 03/28/19 08:38 Dose: Not Given Oxytocin (Pitocin) 10 unit IM ONETIME ONE Stop: 03/27/19 03:52 Last Admin: 03/27/19 04:12 Dose: 10 unit Sodium Chloride (Saline Flush) 10 ml FLUSH ASDIRECTED PRN PRN Reason: Keep Vein Open Sodium Chloride (Saline Flush) 2.5 ml FLUSH ASDIRECTED PRN PRN Reason: Keep Vein Open Sodium Chloride (Normal Saline) 10 ml IV ASDIRECTED PRN PRN Reason: IV Use Sterile Water (Sterile Water For Irrigation) 1,000 ml IRR ASDIRECTED PRN PRN Reason: delivery - Exam General: Reports: Alert, Oriented, Cooperative, No Acute Distress Lungs: Reports: Normal Respiratory Effort GI/Abdominal Exam: Soft, Non-Tender (Female) Exam: Deferred, Vaginal Bleeding Rectal (Female) Exam: Deferred Back Exam: Reports: Normal Inspection, Full Range of Motion Extremities: Normal Inspection, Normal Range of Motion, Non-Tender, No Pedal Edema Skin: Reports: Warm, Dry, Intact Neurological: Reports: No New Focal Deficit, Normal Speech, Normal Tone, Strength Equal Bilateral, Sensation Intact Psy/Mental Status: Reports: Alert, Normal Affect, Normal Mood
[2019-03-29 10:23] VITALS: BP 103/67; PULSE 80
== END 2019-03-29 11:47 | disposition home or self-care (01) | DRG 807 ==
LOC: MW.OBCHECK 02:20 → MW.OB 02:21 → MW.OBCHECK 02:57 → MW.OB 02:57 → OBSVTOIN 03:08 → MW.OB 12:30
PROVIDERS: ADMIT Obstetrics & Gynecology; ATTEND Obstetrics & Gynecology
PROC: 10E0XZZ Delivery of Products of Conception, External Approach (ICD-10-PCS; principal; 2019-03-27)
DX: O48.0 Post-term pregnancy (principal); Z37.0 Single live birth; Z3A.40 40 weeks gestation of pregnancy; O99.824 Streptococcus B carrier state complicating childbirth
CPT/HCPCS: 59025; 59409; J2590